=== PATIENT | male | born 2000 | race Caucasian/White ===

== ENCOUNTER 2024-06-12 07:26 | Emergency (ER) | payer MEDICAID, SELFPAY ==
[2024-06-12 07:27] VITALS: BMI 18.6
[2024-06-12 07:33] VITALS: BP 129/82; PULSE 125; RESP 22; TEMP 36.5; O2SAT 100; BMI 18.8
--- NOTE | 2024-06-12 07:46 | XR_ITS ---
Examination: PA lateral chest 2 views Technique: Upright PA lateral chest 2 views Exam date and time: June 12, 2024 0852 hrs. Indication: Chest pain shortness of breath today Findings: Normal heart size Lungs are clear. The osseous structures are intact Impression: No active disease
--- NOTE | 2024-06-12 07:46 | EKG_ITS ---
[facility] Test Date: 2024-06-12 Pat Name: PATSY NEWBY Department: Room: - Gender: Male Spearer: : 2000 Requested By: Marino Pagan Order Number: [id number] Reading MD: Marino Pagan Measurements Intervals [place] Rate: 82 P: 80 ID: [id number] QRS: 90 QRSD: 105 T: 67 QT: 333 QTc: 391 Interpretive Statements SINUS RHYTHM WITH SINUS ARRHYTHMIA INCOMPLETE RIGHT BUNDLE BRANCH BLOCK [90+ ms QRS DURATION, TERMINAL R IN V1/V2, 40+ ms S IN I/aVL/V4/V5/V6] No previous ECG available for comparison /store/S0/[id number]/ecg/[id number].pdf
--- NOTE | 2024-06-12 07:46 | PD.EDARRY ---
ED Arrhythmia Palp. RME/HPI General Chief Complaint: Arrhythmia/Palpitations Stated Complaint: PALPITATIONS, SOB, CHEST PAIN, VISION CHANGES Source: patient Arrival date/time: 06/12/24 07:26 23-year-old male with no known medical history presents to the emergency room with a chief complaint of 7 out of 10 sternal chest pain that radiates down to his left arm. Patient states he is having blurry vision and states he is having heart palpitations x 2 days Mode of arrival: ambulatory Limitations: no limitations Related Data Allergies Allergy/AdvReac Type Severity Reaction Status Date / Time No Known Allergies Allergy Verified 06/12/24 07:29 ED Exam General Limitations: Present no limitations Course Orders Category Date Time Status EKG (ED ONLY) *Do not use* NOW Care 06/12/24 07:46 Active EKG (ED Only) Stat Exams 06/12/24 07:46 Ordered XR chest 2V Stat Exams 06/12/24 07:46 Ordered B-Type Natriuretic Peptide Stat Lab 06/12/24 07:46 Ordered CBC Stat Lab 06/12/24 07:46 Ordered Comprehensive Metabolic Panel Stat Lab 06/12/24 07:46 Ordered Drug Screen,Urine Stat Lab 06/12/24 07:46 Ordered Free T4 (Free Thyroxine) Stat Lab 06/12/24 07:46 Ordered Magnesium Stat Lab 06/12/24 07:46 Ordered Partial Thromboplastin Time Stat Lab 06/12/24 07:46 Ordered Prothrombin Time with INR Stat Lab 06/12/24 07:46 Ordered TSH [Thyroid Stimulating Hormone] Stat Lab 06/12/24 07:46 Ordered Troponin I Stat Lab 06/12/24 07:46 Ordered Urinalysis Stat Lab 06/12/24 07:46 Ordered Vital Signs Vital signs: Vital Signs Temperature 97.7 F 06/12/24 07:33 Pulse Rate 125 H 06/12/24 07:33 Respiratory Rate 22 H 06/12/24 07:33 Blood Pressure 129/82 06/12/24 07:33 Pulse Oximetry (%) 100 06/12/24 07:33 Discharge Plan Patient/Caregiver Discharge Instructions Print Language: Serbian
--- NOTE | 2024-06-12 07:49 | PD.EDRME ---
Rapid Medical Screening Exam E Arrival date/time: 06/12/24 07:26 23-year-old male with no known medical history presents to the emergency room with a chief complaint of 7 out of 10 sternal chest pain that radiates down to his left arm. Patient states he is having blurry vision and states he is having heart palpitations x 2 days I have greeted and performed a focused initial assessment of this patient. A comprehensive ED assessment and evaluation of the patient, analysis of all test results, and completion of the medical decision making process will be conducted by additional ED providers. Chief Complaint: Arrhythmia/Palpitations Vital signs: Vital Signs Temperature 97.7 F 06/12/24 07:33 Pulse Rate 125 H 06/12/24 07:33 Respiratory Rate 22 H 06/12/24 07:33 Blood Pressure 129/82 06/12/24 07:33 Pulse Oximetry (%) 100 06/12/24 07:33 Vital signs reviewed by provider: Yes
[2024-06-12 09:00] VITALS: BP 116/96; PULSE 67; RESP 14; O2SAT 98
[2024-06-12 09:32] LABS: Basophils % (Auto) 1 % (0-2.5); Eosinophils # (Auto) 0.2 Thou/mm3 (0.0-0.5); Eosinophils % (Auto) 3 % (0-10); Hematocrit 45.7 % (41.0-53.0); Hemoglobin 15.5 g/dL (13.5-16.0); Immature Granulocytes % (Auto) 0 % (0-0); Immature Granulocytes Auto 0.01 Thou/mm3 (0.00-0.00); Lymphocytes # (Auto) 2.4 Thou/mm3 (1.0-4.8); Lymphocytes % (Auto) 39 % (10-50); Mean Corpuscular HGB Conc 33.9 g/dl (31.0-37.0); Mean Corpuscular Hemoglobin 29.9 pg (25.0-35.0); Mean Corpuscular Volume 88 fL (80-100); Monocytes # (Auto) 0.8 Thou/mm3 (0.0-0.8); Monocytes % (Auto) 13 % (0-12); Neutrophils # (Auto) 2.6 Thou/mm3 (1.8-7.7); Neutrophils % (Auto) 43 % (37-80); Nucleated Red Blood Cell % 0 /100 WBC (0); Platelet Count 273 Thou/mm3 (140-440); RDW Standard Deviation 41.1 fL (35.1-43.9); Red Blood Count 5.19 Miln/mm3 (4.50-5.90)
[2024-06-12 10:00] VITALS: BP 120/79; PULSE 70; RESP 14; O2SAT 99
[2024-06-12 10:08] LABS: Alanine Aminotransferase 8 U/L (10-49); Albumin, Serum 5.1 gm/dL (3.5-5.0); Alkaline Phosphatase 61 U/L (46-116); Anion Gap 8 (7-16); Aspartate Amino Transferase 16 U/L (0-34); BUN/Creatinine Ratio 13 Ratio (12-20); Bilirubin,Total 2.1 mg/dL (0.3-1.2); Blood Urea Nitrogen 14 mg/dL (9-23); Calcium 10.3 mg/dL (8.3-10.6); Calcium (Corrected) 10.3 mg/dL (8.5-10.1); Carbon Dioxide 29.8 mMol/L (20.0-31.0); Chloride 106 mMol/L (98-107); Creatinine (Component) 1.1 mg/dL (0.6-1.3); Estimated Creatinine Clearance 96.8 mL/min (>60); Globulin 2.6 gm/dL (2.3-3.5); Glucose 98 mg/dL (74-106); Osmolality,Calculated 287 (275-295); Sodium 144 mMol/L (136-145); Total Protein 7.7 gm/dL (5.7-8.2); eGFR > 60 See Note
--- NOTE | 2024-06-12 10:23 | EDNOTE_ITS ---
ED Chest Pain RME/HPI General Chief Complaint: Arrhythmia/Palpitations Stated Complaint: PALPITATIONS, SOB, CHEST PAIN, VISION CHANGES Arrival date/time: 06/12/24 07:26 RME / HPI RME / HPI narrative: 06/12/24 07:26 23-year-old male with no known medical history presents to the emergency room with a chief complaint of 7 out of 10 sternal chest pain that radiates down to his left arm. Patient states he is having blurry vision and states he is having heart palpitations x 2 days I have greeted and performed a focused initial assessment of this patient. A comprehensive ED assessment and evaluation of the patient, analysis of all test results, and completion of the medical decision making process will be conducted by additional ED providers. Dr. Monique?s Main ED Evaluation: 23 y/o male presents to ED c/o intermittent left-sided chest pain x 1 week. Patient reports associated difficulty breathing and and limb numbness. Patient states he was awoken by the chest pain at approximately 0600 hours this morning. He has lost approximately 30 pounds in 1 month time. He states he forces himself to eat with no appetite, but will become hungry again after 30 minutes. Denies pain is worse or better at night. Patient admits to being a chronic marijuana user, but reports quitting 1 week ago. Denies alcohol or energy drink consumption. Patient reports being seen at [facility] in the past. No modifying factors reported. No other concerns or complaints expressed at this time. Related Data Allergies Allergy/AdvReac Type Severity Reaction Status Date / Time No Known Allergies Allergy Verified 06/12/24 07:29 Review of Systems Review of Systems Systems Reviewed: All systems reviewed, normal except as documented Narrative Review of Systems: Gen: No fever, no chills, + weight loss EYES: No discharge, no visual changes, no pain HEENT: No ear pain, no congestion, no sore throat PULM: + shortness of breath, no cough, no congestion CV: + chest pain, no dyspnea on exertion, no palpitations GI: No nausea, no vomiting, no diarrhea, no pain, no constipation : No frequency, no urgency, no dysuria Musc/skel: No joint pain, no back pain, + general limb numbness Skin: No rash Psyc: No hallucinations, no depression Heme/Lymph: No easy bleeding or bruising tendencies Neuro: No weakness, no headache Past Medical History Social History SMOKING STATUS: Current every day smoker ED Exam Narrative Physical exam: GENERAL APPEARANCE: AxOx4, generally well-appearing, no acute distress. HEENT: NC, AT. MMM. EOMI, clear conjunctiva, oropharynx clear. NECK: Supple without lymphadenopathy. No stiffness or restricted ROM. HEART: Normal rate and regular rhythm, normal S1/S1, no m/r/g LUNGS: CTAB, moving air well. No crackles or wheezes are heard. ABDOMEN: Soft, nontender, nondistended with good bowel sounds heard, No RUQ tenderness. BACK: No midline C/T/L spine pain or deformity, No CVAT, no obvious deformity. EXTREMITIES: Without cyanosis, clubbing or edema. MUSCULOSKELETAL: FROM of all major joints, no chest tenderness NEUROLOGICAL: Grossly nonfocal. Alert and oriented, moving all 4 extremities. CN not formally tested but appear grossly intact. Observed to ambulate with normal gait. Skin: Warm and dry without any rash. Course Quality Measures none Orders Category Date Time Status EKG (ED ONLY) *Do not use* NOW Care 06/12/24 07:46 Completed EKG (ED Only) Stat Exams 06/12/24 07:46 Draft US gall bladder Stat Exams 06/12/24 10:23 Completed XR chest 2V Stat Exams 06/12/24 07:46 Completed CBC Stat Lab 06/12/24 08:45 Completed Comprehensive Metabolic Panel Stat Lab 06/12/24 08:45 Completed Vital Signs Vital signs: Vital Signs Temperature 97.7 F 06/12/24 07:33 Pulse Rate 125 H 06/12/24 07:33 Respiratory Rate 22 H 06/12/24 07:33 Blood Pressure 129/82 06/12/24 07:33 Pulse Oximetry (%) 100 06/12/24 07:33 Procedures -ED EKG Interpretation #1: Date of EK06/12/24 Time of EK:50 Rate: 82 Interpretation: Interpreted by me EKG Impression: Sinus arrhythmia (No STEMI) Chest Pain MDM Narrative MDM Narrative:: Scribe Attestation: Joanne Hi, letty scribing for and in the presence of Dr. Monique. Provider Notation: Although this document has been carefully reviewed, there may still be some phonetic and other typographical errors. These errors are purely grammatical due to imperfections in the software program and should not be construed in any way to compromise the substance of the patient's medical care during this visit. Patient data External records reviewed:: [facility] previous records (Reviewed prior ED visit record. Patient was seen on 05/24/23 for Chronic shoulder pain.) Clinical information provided by:: patient Social determinants that could affect healthcare access:: none Patient has the following chronic illnesses:: N/A How is presenting disease/condition affected by chronic disease/condition?: no chronic disease Evaluation data The following diagnostics were reviewed and interpreted by me:: lab results, radiology exam(s) and EKG tracing(s) (see interpretation under the procedures tab) Lab and/or radiology exams considered but not ordered:: None Interpretation Summary: RADIOLOGY Patient: PATSY NEWBY [facility]. Record#: [id number] Birthdate: 2000 Age/Sex: 23 / M Location: [facility] Attending Dr: Ordering Physician: Marino Collazo Date of Service: 06/12/24 Procedure(s): XR chest 2V Accession Number(s): [id number] cc: Marino Collazo; Cyrus Byers MD~ Examination: PA lateral chest 2 views Technique: Upright PA lateral chest 2 views Exam date and time: June 12, 2024 0852 hrs. Indication: Chest pain shortness of breath today Findings: Normal heart size Lungs are clear. The osseous structures are intact Impression: No active disease Dictated By: Cyrus Byers MD Signed By: Electronically signed by Cyrus Byers MD in [place] 06/12/24 0814 Patient: PATSY NEWBY. Record#: [id number] Birthdate: 2000 Age/Sex: 23 / M Location: [facility] Attending Dr: Ordering Physician: Billy Monique MD Date of Service: 06/12/24 Procedure(s): US gall bladder Accession Number(s): [id number] cc: Billy Monique MD; Cyrus Byers MD; NO PRIMARY/FAMILY,PHYSICIAN~ Examination: Abdomen sonogram, Limited Date and time of exam: June 12, 2024 1209 hours INDICATIONS: Chest pain with cardiac palpitations today, bilirubinemia on laboratory examination June 12, 2024, today Technique: Real-time sheridan scale transabdominal sonographic images of the upper abdomen obtained. Findings: 6 x 8 mm gallstone Normal gallbladder wall Normal common bile duct 0.3 cm Pancreatic head 2.1 cm Liver 14.5 cm fatty infiltration smooth contour no focal liver lesions Normal hepatopedal portal venous oh Patent IVC IMPRESSION: Cholelithiasis, negative for cholecystitis Fatty liver Dictated By: Cyrus Byers MD Signed By: Electronically signed by Cyrus Byers MD in OV 06/12/24 1225 Medications / Prescriptions Medications or Prescriptions considered but not ordered:: None Medication administrations:: See above if any Consultations Consultation(s) initiated? (list below): No Diagnosis Chest Pain Differential Diagnosis: costochondritis, chest pain, biliary colic and other (Gastritis vs Gallstones) Most likely diagnosis given after review of the tests above:: Gastritis, Gallstone Admission Indicated Admission indicated?: not indicated Explain why admission is indicated or not indicated:: Does not meet admission criteria Admission Request Was there a request for admission?: No Disposition Plan Disposition Plan: Discharge Discharge Attestation Discharge Attestation: The patient and all family members were given an opportunity to ask questions and understood the discharge instructions. Discharge instructions specifically effects, indications for sooner follow up or return to the emergency department, and the expected course of current diagnosis. Patient condition: Stable Discharge Plan Plan Patient Disposition: HOME (Self Care) Patient condition on transfer: Stable Prescriptions/Referrals Referrals: No Primary/Family,Physician [Primary Care Provider] - In 1 week Vale Cleaning MD [Physician] - In 1 week Problem List Clinical Impression: Gastritis, Gallstone Patient/Caregiver Discharge Instructions Education Materials: ED Gallstones with Biliary Colic, ED Gastritis (Adult) Additional Instructions: You can take [id number] famotidine (Pepcid) 20 mg twice a day for the next 7 to 10 days. Follow-up with your primary care doctor for possible referral to a general surgeon within your network, contact for the on-call general surgeon has been supplied in your paperwork today. Feel free return to the emergency department sooner if symptoms worsen or if you notice any new, concerning issues Print Language: Khmer Stand Alone Forms: [employer] Award Info., Patient Portal Info Letter
[2024-06-12 10:30] VITALS: PULSE 125
[2024-06-12 11:00] VITALS: BP 117/73; PULSE 61; RESP 14; O2SAT 97
--- NOTE | 2024-06-12 11:51 | PC.NURSE ---
PT WENT TO US VIA WHEELCHAIR
[2024-06-12 13:25] VITALS: BP 117/73; PULSE 61; RESP 14; O2SAT 100
== END 2024-06-12 13:26 | disposition home or self-care (01) ==
PROVIDERS: Nurse Practitioner Family; Emergency Provider Emergency Medicine
DX: K29.70 Gastritis, unspecified, without bleeding (principal); K80.70 Calculus of gallbladder and bile duct without cholecystitis without obstruction; R07.2 Precordial pain; R00.2 Palpitations
CPT/HCPCS: 36415; 71046; 76705; 80053; 80307; 81001; 83735; 83880; 84439; 84443; 84484; 85025; 85610; 85730; 93005; 99284

== ENCOUNTER 2024-09-20 05:50 | Day surgery (SDC) | payer MEDICAID, SELFPAY ==
[2024-09-19 07:40] VITALS: BMI 20.5
[2024-09-19 08:25] LABS: Basophils # (Auto) 0.1 Thou/mm3 (0.0-0.2); Basophils % (Auto) 1 % (0-2.5); Eosinophils # (Auto) 0.3 Thou/mm3 (0.0-0.5); Eosinophils % (Auto) 5 % (0-10); Hematocrit 43.3 % (41.0-53.0); Hemoglobin 14.9 g/dL (13.5-16.0); Immature Granulocytes Auto 0.01 Thou/mm3 (0.00-0.00); Lymphocytes # (Auto) 2.7 Thou/mm3 (1.0-4.8); Lymphocytes % (Auto) 45 % (10-50); Mean Corpuscular HGB Conc 34.4 g/dl (31.0-37.0); Mean Corpuscular Hemoglobin 30.8 pg (25.0-35.0); Mean Corpuscular Volume 90 fL (80-100); Monocytes # (Auto) 0.6 Thou/mm3 (0.0-0.8); Monocytes % (Auto) 11 % (0-12); Neutrophils # (Auto) 2.3 Thou/mm3 (1.8-7.7); Neutrophils % (Auto) 38 % (37-80); Nucleated Red Blood Cell # 0.00 Thou/mm3 (0.00-0.00); Nucleated Red Blood Cell % 0 /100 WBC (0); Platelet Count 262 Thou/mm3 (140-440); RDW Standard Deviation 42.8 fL (35.1-43.9); Red Blood Count 4.84 Miln/mm3 (4.50-5.90); White Blood Count 6.0 Thou/mm3 (3.8-10.6)
[2024-09-19 08:52] LABS: Alanine Aminotransferase 10 U/L (10-49); Albumin, Serum 4.4 gm/dL (3.5-5.0); Albumin/Globulin Ratio 1.8 (1.2-2.2); Alkaline Phosphatase 52 U/L (46-116); Anion Gap 10 (7-16); Aspartate Amino Transferase 16 U/L (0-34); BUN/Creatinine Ratio 9 Ratio (12-20); Bilirubin,Total 0.9 mg/dL (0.3-1.2); Blood Urea Nitrogen 9 mg/dL (9-23); Calcium 9.7 mg/dL (8.3-10.6); Calcium (Corrected) 9.7 mg/dL (8.5-10.1); Carbon Dioxide 30.2 mMol/L (20.0-31.0); Chloride 104 mMol/L (98-107); Creatinine (Component) 1.0 mg/dL (0.6-1.3); Estimated Creatinine Clearance 114.6 mL/min (>60); Globulin 2.4 gm/dL (2.3-3.5); Glucose 96 mg/dL (74-106); Osmolality,Calculated 285 (275-295); Potassium 3.9 mMol/L (3.4-5.1); Sodium 144 mMol/L (136-145); Total Protein 6.8 gm/dL (5.7-8.2); eGFR > 60 See Note
[2024-09-19 09:00] LABS: INR 1.0 (0.9-1.3); Partial Thromboplastin Time 27.3 Seconds (22.0-36.0); Prothrombin Time 11.2 Seconds (9.0-12.2)
[2024-09-20] VITALS (8 sets, daily range): BP systolic 132–177; BP diastolic 77–104; PULSE 86–125; RESP 13–20; TEMP 36.3–36.5; O2SAT 94–100; BMI 20.1
[2024-09-20] MEDS: RINGERS LACTATED 1000 ML 1,000 ML 20 ML IV (06:55)
--- NOTE | 2024-09-20 07:18 | SUR.PREOP ---
Patient expressed gratitude for prayer before their procedure.
--- NOTE | 2024-09-20 09:08 | SUR.PHASEI ---
pt received from OR in recovery bay 1. pt obtunded, breathing unlabored on 8l oxymask, oral airway in place. pt shivering, blanket warmer initiated. pt tachycardiac, Dr. Ibarra aware. pt dressing to abd x4 cdi. report received from Omari NIEVES and Dr. Ibarra.
--- NOTE | 2024-09-20 09:13 | ESOP_ITS ---
Date of Procedure 09/20/24 Pre Op Diagnosis Symptomatic cholelithiasis Post Op Diagnosis Same Procedure Laparoscopic cholecystectomy Findings Patient was found to have a noninflamed gallbladder with a single stone Procedure Description After endotracheal anesthesia was given the patient was placed in supine position and the abdomen was prepped with chloroprep solution and draped in a sterile manner. After time out was performed I injected a few cc of of half percent Marcaine with epinephrine below the umbilicus and I made an incision for about 3 cm in length. The fascia was cleaned and Veress needle was inserted to create a pneumoperitoneum up to 15 mmHg. Then introduced a 12 mm trocar and a 10 mm camera through the fascia and I inspected the intra-abdominal organs as well as the gallbladder and the liver. Another 5 mm trocar was inserted in the epigastric region under direct vision after injecting some local anesthesia. At this time the patient was kept in reverse Trendelenburg position with the left lateral tilt. The third 5 mm trocar was inserted over the mid axillary line under direct vision and a Marcelino and Naun grasper was used to hold the fundus of the gallbladder. The retraction was carried out by the doctor's assistant moving the fundus of the gallbladder towards the right shoulder of the patient to create enough traction. I placed a another 5 mm trocar in the midaxillary line just lateral to the rectus muscle under direct vision. I used a fenestrated grasper to retract the neck of the gallbladder laterally towards the patient's right hip. The Calot's triangle was exposed and I achieved the critical view of safety as follows: I dissected out the fatty tissue from the hepatocystic triangle and cleared this area. I also dissected inferior and posterior to the gallbladder to identify the cystic duct and the gallbladder wall. Then superiorly I dissected along the cystic plate up to lower one third third of the gallbladder to lift the gallbladder from the liver. At this time I confirmed that only 2 structures entering the gallbladder were cystic artery and the cystic duct. The common duct was seen distally but no dissection was carried out around the duct. I did not see any need for operative cholangiogram in this patient. The cystic duct was clipped doubly and then divided and cystic artery was similarly dealt with. Then the gallbladder was removed from the liver bed using Harmonic darwin to control the small blood vessels as the dissection proceeded. Then the gallbladder was from the liver bed completely and delivered through the umbilical port using an Endopouch. The liver bed was coagulated with cautery to obtain satisfactory hemostasis. The trocars were pulled out from the abdominal cavity and the fascia at the umbilical incision was closed with interrupted 0 Ethibond. Subcutaneous tissues was closed with 3- 0 chromic and injected a few cc of half percent Marcaine with epinephrine and the skin was closed with interrupted 4-0 nylon stitches at all the trocar sites. Dressing was applied with 2 x 2 and Tegaderm. Patient tolerated the procedure well and returned to recovery room in stable condition. Anesthesia GETA Pathology / specimen Other (Gallbladder on the stone) Estimated Blood Loss 20 Condition Stable Disposition PACU Surgeon Vale Cleaning MD Surgical Staff Operation Date: 09/20/24 08:00 Case Staff Anesthesiologist: Wolf Ibarra RN First Assistant: Gurdeep Santiago
[2024-09-20] MEDS: fentaNYL CIT INJ 50 mCg/ML AMP 2ML 25 MCG IVP ×2 (09:15→09:53)
[2024-09-20] MEDS: MEPERIDINE INJ 50 MG/ML VIAL 25 MG IVP (09:19)
--- NOTE | 2024-09-20 09:48 | SUR.PHASEII ---
pt able to tolerate oral fluids without difficulty swallowing or nausea/vomiting.
--- NOTE | 2024-09-20 10:23 | SUR.PHASEII ---
pt awake and alert, breathing unlabored on room air. v/s stable. pt dressing to abd x4 cdi. pt able to ambulate to wheelchair with steady gait. d/c instructions given with mother Tarsha in room, all questions answered. pt d/c via wheelchair with all belongings.
== END 2024-09-20 10:23 | disposition home or self-care (01) ==
PROVIDERS: PCP Physician Assistant; Referring Provider Surgery; Visit Provider Surgery
PROC: 0FT44ZZ Resection of Gallbladder, Percutaneous Endoscopic Approach (ICD-10-PCS; CPT 47562; principal; 2024-09-20 08:00)
DX: K80.10 Calculus of gallbladder with chronic cholecystitis without obstruction (principal)
CPT/HCPCS: 47562; 36415; 80053; 85025; 85610; 85730; A4217; A4649; J0131; J0461; J1885; J2175; J2250; J2405; J2704; J3010; J3490; J7120; A9270